=== PATIENT | female | born 1960 | race Caucasian/White ===

== ENCOUNTER 2018-07-25 10:00 | Outpatient (RCR) | payer OTHER | END 2018-08-17 15:00 | disposition home or self-care (01) | LOC: WSOT 10:00 | DX: M25.532 Pain in left wrist (principal); W01.198D Fall on same level from slipping, tripping and stumbling with subsequent striking against other object, subsequent encounter ==

== ENCOUNTER 2018-09-28 14:22 | Emergency (ER) | payer OTHER ==
[~2018-09-28] VITALS: Ht 160 cm; Wt 64.5 kg
[2018-09-28] MEDS ORDERED: VICTOZA6 MG/ML INJ (15:22)
[2018-09-28] MEDS ORDERED: GLUCOPHAGE1000 MG PO (15:22)
[2018-09-28] MEDS ORDERED: CORGARD40 MG PO (15:23)
[2018-09-28] MEDS ORDERED: SYNTHROID0.1 MG/TAB PO (15:23)
[2018-09-28 15:24] LABS: BASO % 0.3 % (0.0-2.0); EOS # 0.2 (0.0-0.7); EOS % 2.3 % (0-4.0); GRAN # 5.2 (1.4-6.5); GRAN % 59.6 % (42.2-75.2); HEMOGLOBIN 12.8 g/dl (12.5-16.0); LYMPH # 2.7 (1.2-3.4); LYMPH % 30.8 % (20.0-51.0); MEAN CELL VOLUME 90 fl (80.0-100.0); MEAN CORPUSCULAR HEMOGLOBIN 31 pg (27.0-31.0); MEAN CORPUSCULAR HGB CONC 35 g/dl (33.0-37.0); MEAN PLATELET VOLUME 10.3 fl (7.4-10.4); MONO # 0.6 (0.1-0.6); MONO % 6.7 % (1.7-9.3); PLATELET COUNT 249 K/mm3 (130-400); RED BLOOD COUNT 4.12 M/mm3 (4.10-5.30); REDCELL DISTRIBUTION WIDTH-CV 12.4 % (11.5-14.5)
[2018-09-28] MEDS ORDERED: ZESTORETIC 12.51 TAB PO (15:24)
[2018-09-28] MEDS ORDERED: ZONEGRAN50 MG PO (15:25)
[2018-09-28] MEDS ORDERED: DIABETA 5MG5 MG/TAB PO (15:25)
[2018-09-28] MEDS ORDERED: LIVALO2 MG PO (15:26)
[2018-09-28 15:36] LABS: ALANINE AMINOTRANSFERASE 22 U/L (9-52); ALBUMIN 4.3 gm/dL (3.5-5.0); ALKALINE PHOSPHATASE 52 U/L (50-136); ANION GAP 10 mmol/L (7-16); AST,SGOT 30 U/L (15-37); BILIRUBIN,TOTAL 0.3 mg/dL (0.0-1.0); BLOOD UREA NITROGEN 13 mg/dL (7-17); C-REACTIVE PROTEIN 0.6 mg/dL (0.0-0.9); CALCIUM 10.8 mg/dL (8.4-10.2); CARBON DIOXIDE 27 mmol/L (22-30); CHLORIDE 104 mmol/L (98-107); CREATININE, serum 0.67 (0.52-1.25); GLUCOSE 137 mg/dL (74-106); LIPASE 249 U/L (23-300); POTASSIUM 3.5 mmol/L (3.4-5.0); SODIUM 140 mmol/L (137-145); TOTAL PROTEIN 7.6 gm/dL (6.4-8.2)
[2018-09-28 15:44] LABS: TROPONIN-I < 0.012 ng/mL (0.000-0.035)
[2018-09-28 17:06] VITALS: BP 99/61; PULSE 69; TEMP 98.3
== END 2018-09-28 16:59 | disposition home or self-care (01) ==
LOC: COL.ER 14:22
PROVIDERS: Emergency Medicine
DX: R07.89 Other chest pain (principal); R20.2 Paresthesia of skin; I10 Essential (primary) hypertension; E11.9 Type 2 diabetes mellitus without complications; G43.909 Migraine, unspecified, not intractable, without status migrainosus; E03.9 Hypothyroidism, unspecified; Z79.84 Long term (current) use of oral hypoglycemic drugs